=== PATIENT | female | born 1985 | race Caucasian/White ===

== ENCOUNTER 2021-04-12 02:21 | Emergency (ER) | payer BC ==
[~2021-04-12] VITALS: Ht 160 cm; Wt 100.0 kg
[2021-04-12] MEDS ORDERED: LORazepam 1 MG tablet PO ONE (03:45)
[2021-04-12] MEDS ORDERED: LORA-269 PO (04:51)
[2021-04-12 05:01] VITALS: BP 114/77
== END 2021-04-12 05:01 | disposition home or self-care (01) ==
LOC: ER 02:21
DX: F41.9 Anxiety disorder, unspecified (principal); Z88.8 Allergy status to other drugs, medicaments and biological substances; Z79.899 Other long term (current) drug therapy; Z87.442 Personal history of urinary calculi; Z87.440 Personal history of urinary (tract) infections; Z87.81 Personal history of (healed) traumatic fracture; Z98.891 History of uterine scar from previous surgery
CPT/HCPCS: 99283